=== PATIENT | female | born 1995 ===

== ENCOUNTER 2017-03-14 10:38 | Emergency (ER) | payer MEDICAID ==
[2017-03-14 11:09] VITALS: TEMP 99.5; BMI 22.8
[2017-03-14] MEDS ORDERED: Sodium Chloride 0.9% 1,000 ML IV STA (11:11)
--- NOTE | 2017-03-14 11:55 | ED PDOC ---
Arrival/HPI - General Chief Complaint: Flu-like Symptoms Time Seen by Provider: 03/14/17 11:11 Historian: Patient - History of Present Illness Narrative History of Present Illness (Text): 03/14/17 11:47 21yo female with no PMHx present with complaint of diffuse abdominal pain, nausea, nonbloody/billious vomiting and diarrhea x 2days. +Subjective fever. + Sick contact. Denies chest pain, dizziness, melena, hematemesis, urinary symptoms, travel, any other complaint. Past Medical History - Provider Review Nursing Documentation Reviewed: Yes - Psychiatric Hx Substance Use: No Family/Social History - Physician Review Nursing Documentation Reviewed: Yes Family/Social History: Unknown Family HX Smoking Status: Never Smoked Hx Alcohol Use: No Hx Substance Use: No Allergies/Home Meds Allergies/Adverse Reactions: Allergies No Known Allergies Allergy (Verified 03/14/17 11:09) Review of Systems - Physician Review All systems were reviewed & negative as marked: Yes - Review of Systems Constitutional: Normal Eyes: Normal ENT: Normal Respiratory: Normal Cardiovascular: Normal Gastrointestinal: Abdominal Pain, Diarrhea, Nausea, Vomiting. absent: Constipation, Hematochezia, Hematemesis Genitourinary Female: Normal Musculoskeletal: Normal Skin: Normal Neurological: Normal Endocrine: Normal Hemo/Lymphatic: Normal Psychiatric: Normal Physical Exam Vital Signs Reviewed: Yes Vital Signs Temp Pulse Resp BP Pulse Ox 03/14/17 11:01 99.5 F 127 H 18 97/67 L 96 Temperature: Afebrile Blood Pressure: Normal Pulse: Tachycardic Respiratory Rate: Normal Appearance: Positive for: Well-Appearing, Non-Toxic, Comfortable Pain Distress: None Mental Status: Positive for: Alert and Oriented X 3 - Systems Exam Head: Present: Atraumatic, Normocephalic Pupils: Present: PERRL Extroacular Muscles: Present: EOMI Conjunctiva: Present: Normal Mouth: Present: Moist Mucous Membranes Neck: Present: Normal Range of Motion Respiratory/Chest: Present: Clear to Auscultation, Good Air Exchange. No: Respiratory Distress, Accessory Muscle Use Cardiovascular: Present: Regular Rate and Rhythm, Normal S1, S2. No: Murmurs Abdomen: Present: Tenderness (diffuse), Normal Bowel Sounds, Other (soft). No: Distention, Peritoneal Signs, Rebound, Guarding, McBurney's Point Tender, Rovsing's Sign Present Back: Present: Normal Inspection Upper Extremity: Present: Normal Inspection. No: Cyanosis, Edema Lower Extremity: Present: Normal Inspection. No: Edema Neurological: Present: GCS=15, CN II-XII Intact, Speech Normal Skin: Present: Warm, Dry, Normal Color. No: Rashes Psychiatric: Present: Alert, Oriented x 3, Normal Insight, Normal Concentration Medical Decision Making ED Course and Treatment: 03/14/17 13:19 PT in ED for stated history. she was hydrated and treated with Zofran, Toradol and pepcid. On re evaluation her pain improved and she was able to tolerate PO challenge in ED. she have UTI and was treated with macrobid. Result was DW the pt. she was advised to drink plenty of fluid and follow BALD diet. Referred to her PMD. TRT ED for any new or worsening symptoms - Lab Interpretations Lab Results: 03/14/17 12:00 03/14/17 12:00 Lab Results 03/14/17 12:00: Sodium 137, Potassium 3.5 L, Chloride 101, Carbon Dioxide 25, Anion Gap 15, BUN 25 H, Creatinine 0.7, Est GFR ( Amer) > 60, Est GFR ( Non-Af Amer) > 60, Random Glucose 104, Calcium 8.9, Total Bilirubin 0.7, AST 26 , ALT 24, Alkaline Phosphatase 63, Total Protein 8.0, Albumin 4.6, Globulin 3.4 , Albumin/Globulin Ratio 1.3, Lipase 108 03/14/17 12:00: Urine Color Yellow, Urine Appearance Cloudy, Urine pH 6.0, Ur Specific [place] 1.025, Urine Protein Trace H, Urine Glucose (UA) Negative, Urine Ketones Trace H, Urine Blood Negative, Urine Nitrate Negative, Urine Bilirubin Small H, Urine Urobilinogen 1.0 H, Ur Leukocyte Esterase Moderate H, Urine RBC 0 - 2, Urine WBC 10 - 15, Ur Epithelial Cells Many, Urine Bacteria Mod 03/14/17 12:00: PT 12.5, INR 1.13 H, APTT 29.3 03/14/17 12:00: WBC 5.8, RBC 4.77, Hgb 13.6, Hct 42.1, MCV 88.3, MCH 28.5, MCHC 32.3, RDW 13.7, Plt Count 207, MPV 11.2 H, Gran % 85.9 H, Lymph % (Auto) 8.2 L, Reagan % (Auto) 5.9, Eos % (Auto) 0.0 L, Baso % (Auto) 0.0, Gran # 4.95, Lymph # 0.5 L, Reagan # 0.3, Eos # 0.0, Baso # 0.00 - Medication Orders Current Medication Orders: Discontinued Medications Famotidine (Pepcid) 20 mg IVP STAT STA Stop: 03/14/17 11:12 Last Admin: 03/14/17 12:00 Dose: 20 mg IVP Administration Document 03/14/17 12:00 RD (Rec: 03/14/17 12:00 RD [id number]) Charges for Administration # of IVP Administrations 1 Sodium Chloride (Sodium Chloride 0.9%) 1,000 mls @ 1,000 mls/hr IV .Q1H STA Stop: 03/14/17 12:10 Last Admin: 03/14/17 11:28 Dose: 1,000 mls/hr eMAR Start Stop Document 03/14/17 11:28 RD (Rec: 03/14/17 11:28 RD [id number]) Intravenous Solution Start Date 03/14/17 Start Time 11:28 End Date 03/14/17 End time 12:28 Total Infusion Time 60 Ketorolac Tromethamine (Toradol) 30 mg IVP STAT STA Stop: 03/14/17 11:12 Last Admin: 03/14/17 12:00 Dose: 30 mg MAR Pain Assessment Document 03/14/17 12:00 RD (Rec: 03/14/17 12:01 RD [id number]) Pain Reassessment Is this a pain reassessment? No Sleep Is patient sleeping during reassessment? No Presence of Pain Presence of Pain Yes IVP Administration Document 03/14/17 12:00 RD (Rec: 03/14/17 12:01 RD [id number]) Charges for Administration # of IVP Administrations 1 Nitrofurantoin Macrocrystals (Macrobid) 100 mg PO Q12 STA Stop: 03/14/17 12:30 Last Admin: 03/14/17 12:30 Dose: 100 mg Ondansetron HCl (Zofran Inj) 4 mg IVP STAT STA Stop: 03/14/17 11:12 Last Admin: 03/14/17 12:01 Dose: 4 mg IVP Administration Document 03/14/17 12:01 RD (Rec: 03/14/17 12:01 RD [id number]) Charges for Administration # of IVP Administrations 1 Disposition/Present on Arrival - Present on Arrival Any Indicators Present on Arrival: No History of DVT/PE: No History of Uncontrolled Diabetes: No Urinary Catheter: No History of Decub. Ulcer: No History Surgical Site Infection Following: None - Disposition Have Diagnosis and Disposition been Completed?: Yes Diagnosis: Abdominal pain, Vomiting and diarrhea Disposition: HOME/ ROUTINE Disposition Time: 13:25 Patient Plan: Discharge Condition: STABLE Discharge Instructions (ExitCare): Abdominal Pain (ED) Additional Instructions: Follow up with your doctor and drink plenty of fluid Follow BLAND diet Return to ED for any new or worsening symptoms Prescriptions: Famotidine [Pepcid] 20 mg PO BID #20 tab Nitrofurantoin Macrocrystals [Macrobid] 100 mg PO BID #14 cap Ondansetron ODT [Zofran ODT] 4 mg PO Q6 #7 odt Referrals: Roambidenice Johnson, [Primary Care Provider] - Follow up with primary [facility] at [facility] [place], [place] [Outside] - Follow up with primary Forms: [employer] (Chinese)
[2017-03-14 12:04] LABS: URINE BILIRUBIN SMALL (NEGATIVE); URINE BLOOD NEGATIVE (NEGATIVE); URINE GLUCOSE (UA) NEGATIVE (NEGATIVE); URINE KETONE TRACE mg/dL (NEGATIVE); URINE LEUKOCYTE ESTERASE MODERATE Leu/uL (NEGATIVE); URINE PROTEIN TRACE mg/dL (<30 mg/dL)
[2017-03-14 12:05] LABS: GRAN # 4.95 (1.4-6.5); GRAN % 85.9 % (50.0-68.0); HEMATOCRIT 42.1 % (36.0-48.0); LYMPH # 0.5 (1.2-3.4); LYMPH % 8.2 % (22.0-35.0); MEAN CELL VOLUME 88.3 fl (80.0-105.0); MEAN CORPUSCULAR HEMOGLOBIN 28.5 pg (25.0-35.0); MEAN CORPUSCULAR HGB CONC 32.3 g/dl (31.0-37.0); MEAN PLATELET VOLUME 11.2 fl (7.0-11.0); MONO # 0.3 (0.1-0.6); MONO % 5.9 % (1.0-6.0); RED CELL DISTRIBUTION WIDTH 13.7 % (11.5-14.5); WHITE BLOOD COUNT 5.8 10^3/ul (4.5-11.0)
[2017-03-14 12:06] LABS: URINE APPEARANCE CLOUDY (CLEAR); URINE COLOR YELLOW (YELLOW)
[2017-03-14 12:17] LABS: URINE BACTERIA MOD (NEG); URINE EPITHELIAL CELLS MANY /hpf (0-5); URINE RBC 0 - 2 /hpf (0-2)
[2017-03-14 12:20] LABS: INR 1.13 (0.93-1.08); PARTIAL THROMBOPLASTIN TIME 29.3 Seconds (25.1-36.5)
[2017-03-14 12:32] LABS: LIPASE 108 U/L (23-300)
[2017-03-14 12:41] LABS: ALB/GLOB RATIO 1.3 (1.1-1.8); ALKALINE PHOSPHATASE 63 U/L (38-126); ALT/SGPT 24 U/L (7-56); AST/SGOT 26 U/L (14-36); BILIRUBIN,TOTAL 0.7 mg/dL (0.2-1.3); BLOOD UREA NITROGEN 25 mg/dL (7-21); CALCIUM 8.9 mg/dL (8.4-10.5); CARBON DIOXIDE 25 mmol/L (21-33); CHLORIDE 101 mmol/L (98-107); GFR AFRICAN-AMERICAN > 60; GLUCOSE,RANDOM 104 mg/dL (70-110); POTASSIUM 3.5 mmol/L (3.6-5.0); SODIUM 137 mmol/L (132-148)
[2017-03-14 14:03] VITALS: BP 118/74; PULSE 90; RESP 17; O2SAT 99
== END 2017-03-14 13:45 | disposition home or self-care (01) ==
LOC: MERGE 10:38 → ED 10:38
DX: R10.9 Unspecified abdominal pain (principal); R11.10 Vomiting, unspecified; R19.7 Diarrhea, unspecified
CPT/HCPCS: 80053; 81001; 83690; 85025; 85610; 85730; 87086; 96361; 96374; 96375; 99284; J1885; J2405; J7040

== ENCOUNTER 2017-12-30 18:18 | Emergency (ER) | payer MEDICAID ==
[2017-12-30 19:31] VITALS: TEMP 98.1; O2SAT 99; BMI 31.2
[2017-12-30] MEDS ORDERED: Alum-Mag Hydrox-Simethicone Susp (30 mL) PO STA (19:56)
--- NOTE | 2017-12-30 20:04 | ED PDOC ---
Arrival/HPI - General Chief Complaint: Abdominal Pain Time Seen by Provider: 12/30/17 19:39 Historian: Patient - History of Present Illness Narrative History of Present Illness (Text): 12/30/17 20:00 22 yr old female w/ hx of choleycystitis, gastritis, H. Pylori, previously on antibiotics, on PPI p/w abdominal pain. Pt notes her pain feels exactly alike previous GERD like abdominal pain for which she has seen her GI doctor: Dr. Coon. She had an endoscopy 2 weeks ago and was told that she had H. Pylori today by her GI doctor. She notes burning epigastric pain, radiating into her L side. She notes pain since 6d prior and was seen by GI today and given more PPI. No trauma or fall. No flank pain. No urinary complaints. LMP was Sept , normal. No vaginal bleeding. No constipation or diarrhea. Pt notes she last ate at 4 pm. She notes taking the PPI today with minor improvement of the pain. No headache, nausea or vomiting. No dark or bloody stool. No RLQ pain or LLQ pain. No CP or sob. No other complaints. Time/Duration: < week Symptom Onset: Gradual Symptom Course: Unchanged Quality: Burning Past Medical History - Past History Past History: No Previous - Infectious Disease Hx of Infectious Diseases: None - Tetanus Immunization Tetanus Immunization: Up to Date - Past Medical History Past Medical History: No Previous - Psychiatric Hx Depression: No Hx Emotional Abuse: No Hx Physical Abuse: No Hx Substance Use: No - Past Surgical History Past Surgical History: No Previous - Surgical History Hx Cholecystectomy: Yes - Anesthesia Hx Anesthesia: Yes Hx Anesthesia Reactions: No Hx Malignant Hyperthermia: No - Suicidal Assessment Feels Threatened In Home Enviroment: No Family/Social History Family/Social History: No Known Family HX Smoking Status: Never Smoked Hx Alcohol Use: No Hx Substance Use: No Hx Substance Use Treatment: No Allergies/Home Meds Allergies/Adverse Reactions: Allergies No Known Allergies Allergy (Verified 09/19/14 10:28) Home Medications: Home Meds Medication Instructions Recorded Confirmed Amoxicillin [Amoxil 500 mg Cap] 1 cap PO Q12H 12/30/17 12/30/17 Clarithromycin [Biaxin Filmtab] 1 tab PO BID 12/30/17 12/30/17 Dexlansoprazole [Dexilant] 1 cap PO DAILY 12/30/17 12/30/17 Omeprazole 1 cap PO BID 12/30/17 12/30/17 Review of Systems - Review of Systems Constitutional: Normal. absent: Fatigue Eyes: Normal. absent: Vision Changes ENT: Normal. absent: Hearing Changes Respiratory: Normal. absent: SOB Cardiovascular: Normal. absent: Chest Pain Gastrointestinal: Abdominal Pain. absent: Stool Changes, Constipation, Diarrhea, Nausea, Vomiting, Hematochezia, Hematemesis Genitourinary Female: Normal. absent: Dysuria, Frequency, Hematuria, Vaginal Bleeding, Vaginal Discharge Musculoskeletal: Normal. absent: Arthralgias, Back Pain, Neck Pain Skin: Normal. absent: Rash, Pruritis, Skin Lesions Neurological: Normal. absent: Headache, Dizziness Endocrine: Normal. absent: Diaphoresis, Polyuria Physical Exam Vital Signs Temp Pulse Resp BP Pulse Ox 12/30/17 19:21 98.1 F 98 H 20 119/74 99 - Systems Exam Head: Present: Atraumatic, Normocephalic Pupils: Present: PERRL Extroacular Muscles: Present: EOMI Conjunctiva: Present: Normal Mouth: Present: Moist Mucous Membranes Neck: Present: Normal Range of Motion Respiratory/Chest: Present: Clear to Auscultation, Good Air Exchange. No: Respiratory Distress, Accessory Muscle Use Cardiovascular: Present: Regular Rate and Rhythm, Normal S1, S2. No: Murmurs Abdomen: Present: Tenderness (epigastric, LUQ). No: Distention, Peritoneal Signs, Rebound, Guarding, McBurney's Point Tender, Rovsing's Sign Present, Hernias, Mass/Organomegaly Back: Present: Normal Inspection Upper Extremity: Present: Normal Inspection. No: Cyanosis, Edema Lower Extremity: Present: Normal Inspection. No: Edema Neurological: Present: GCS=15, CN II-XII Intact, Speech Normal Skin: Present: Warm, Dry, Normal Color. No: Rashes Psychiatric: Present: Alert, Oriented x 3, Normal Insight, Normal Concentration Medical Decision Making ED Course and Treatment: 12/30/17 20:06 22 yr old female w/ hx of choley, gastritis, recently dx w/ H. Pylori today p/w abdominal pain, epigastric, radiating to L side. No trauma. No urinary complaints no CVAT. No urinary or genital related complaints. Likely recurrent H. Pylori pain given x5d of pain, was dx today and started on H. Pylori cocktail per pt re-eval. No RLQ pain. No LLQ pain. No diarrhea or constipation. Will seek labs, pain control given largely benign abd exam and reassessment. No etoh. pending labs 12/30/17 20:35 labs unremarkable. neg preg. pending reassessment 12/30/17 2120 abd nonttp on reassessment w/ out peritoneal signs Pt in NAD with VSS, endorses improvement of pain. Pt requesting maalox for home clear for d/c home - Medication Orders Current Medication Orders: Discontinued Medications Al Hydrox/Mg Hydrox/Simethicone (Maalox Plus 30 Ml) 30 ml PO STAT STA Stop: 12/30/17 19:57 Disposition/Present on Arrival - Present on Arrival Any Indicators Present on Arrival: No History of DVT/PE: No History of Uncontrolled Diabetes: No Urinary Catheter: No History of Decub. Ulcer: No History Surgical Site Infection Following: None - Disposition Have Diagnosis and Disposition been Completed?: Yes Diagnosis: Gastritis Disposition: HOME/ ROUTINE Disposition Time: 21:00 Patient Problems: Current Active Problems Problem Status Onset Gastritis Acute Condition: GOOD Discharge Instructions (ExitCare): Gastritis Additional Instructions: OBED ZAVALA, thank you for letting us take care of you today. Your provider was Chava Sullivan and you were treated for STOMACH PAIN. The emergency medical care you received today was directed at your acute symptoms. If you were prescribed any medication, please fill it and take as directed. It may take several days for your symptoms to resolve. Return to the Emergency Department if your symptoms worsen, do not improve, or if you have any other problems. Please contact your doctor or call one of the physicians/clinics you have been referred to that are listed on the Patient Visit Information form that is included in your discharge packet. Bring any paperwork you were given at discharge with you along with any medications you are taking to your follow up visit. Our treatment cannot replace ongoing medical care by a primary care provider outside of the emergency department. Thank you for allowing the [facility] team to be part of your care today. If you had an X-Ray or CT scan: A Radiologist will review the ED reading if any change in treatment is needed we will contact you. If you had a blood, urine, or wound culture: It will take several days for the results, if any change in treatment is needed we will contact you. If you had an STI test: It will take 48 hours for the results. Please call after 1 week if you have not heard back. Prescriptions: Aluminum Hydroxide/Magnesium H [Maalox 30 ml] 10 ml PO BID PRN 10 Days #100 udc PRN Reason: Pain, Moderate (4-7) Forms: [employer] (Eritrean)
[2017-12-30 20:20] LABS: VENOUS BLOOD GAS PO2 36 mm/Hg (30-55); VENOUS BLOOD PH 7.32 (7.32-7.43)
[2017-12-30 20:21] LABS: BASO # 0.02 K/mm3 (0.0-2.0); BASO % 0.2 % (0.0-3.0); EOS # 0.6 (0.0-0.7); EOS % 5.3 % (1.5-5.0); GRAN # 6.88 (1.4-6.5); GRAN % 64.6 % (50.0-68.0); HEMOGLOBIN 11.9 g/dL (12.0-16.0); LYMPH # 2.6 (1.2-3.4); LYMPH % 24.3 % (22.0-35.0); MEAN CELL VOLUME 87.8 fl (80.0-105.0); MEAN CORPUSCULAR HEMOGLOBIN 28.4 pg (25.0-35.0); MEAN CORPUSCULAR HGB CONC 32.3 g/dl (31.0-37.0); MEAN PLATELET VOLUME 10.6 fl (7.0-11.0); MONO # 0.6 (0.1-0.6); MONO % 5.6 % (1.0-6.0); RBC 4.19 10^6/uL (3.5-6.1); RED CELL DISTRIBUTION WIDTH 13.1 % (11.5-14.5); URINE BILIRUBIN NEGATIVE (NEGATIVE); URINE BLOOD NEGATIVE (NEGATIVE); URINE GLUCOSE (UA) NEGATIVE (NEGATIVE); URINE LEUKOCYTE ESTERASE SMALL Leu/uL (NEGATIVE); URINE PROTEIN NEGATIVE mg/dL (<30 mg/dL); URINE UROBILINOGEN 0.2 E.U./dL (<1 E.U./dL); WHITE BLOOD COUNT 10.7 10^3/ul (4.5-11.0)
[2017-12-30 20:22] LABS: URINE APPEARANCE SL CLOUDY (CLEAR); URINE COLOR YELLOW (YELLOW)
[2017-12-30 20:23] LABS: URINE EPITHELIAL CELLS MANY /hpf (0-5); URINE RBC NEGATIVE /hpf (0-2)
[2017-12-30 20:33] LABS: ALB/GLOB RATIO 1.2 (1.1-1.8); ALBUMIN 4.4 g/dL (3.0-4.8); ALT/SGPT 18 U/L (7-56); AST/SGOT 22 U/L (14-36); BLOOD UREA NITROGEN 17 mg/dL (7-21); CALCIUM 9.2 mg/dL (8.4-10.5); GFR NON-AFRICAN AMERICAN > 60; LIPASE 90 U/L (23-300)
[2017-12-30 21:20] VITALS: BP 121/71; PULSE 89; RESP 18
== END 2017-12-30 21:46 | disposition home or self-care (01) ==
LOC: ED 18:18
DX: K29.70 Gastritis, unspecified, without bleeding (principal)

== ENCOUNTER 2018-07-14 09:12 | Emergency (ER) | payer MEDICAID ==
[2018-07-14 09:13] VITALS: BMI 24.5
[2018-07-14 09:37] VITALS: RESP 18; TEMP 98.5; O2SAT 97
[2018-07-14] MEDS ORDERED: Sodium Chloride 0.9% 1,000 ML IV STA (09:52)
[2018-07-14 10:23] LABS: BASO # 0.01 K/mm3 (0.0-2.0); BASO % 0.2 % (0.0-3.0); HEMOGLOBIN 13.2 g/dL (12.0-16.0); LYMPH # 0.8 (1.2-3.4); LYMPH % 15.7 % (22.0-35.0); MEAN CELL VOLUME 89.9 fl (80.0-105.0); MEAN CORPUSCULAR HEMOGLOBIN 28.9 pg (25.0-35.0); MEAN CORPUSCULAR HGB CONC 32.2 g/dl (31.0-37.0); MEAN PLATELET VOLUME 11.1 fl (7.0-11.0); MONO # 0.4 (0.1-0.6); MONO % 8.9 % (1.0-6.0); PH,URINE 6.5 (4.7-8.0); RBC 4.56 10^6/uL (3.5-6.1); RED CELL DISTRIBUTION WIDTH 12.9 % (11.5-14.5); URINE BILIRUBIN NEGATIVE (NEGATIVE); URINE BLOOD NEGATIVE (NEGATIVE); URINE GLUCOSE (UA) NEGATIVE (NEGATIVE); URINE LEUKOCYTE ESTERASE NEGATIVE Leu/uL (NEGATIVE); URINE PROTEIN 30 mg/dL (<30 mg/dL); URINE UROBILINOGEN 0.2 E.U./dL (<1 E.U./dL); WHITE BLOOD COUNT 4.9 10^3/uL (4.5-11.0)
[2018-07-14 10:26] LABS: URINE APPEARANCE TURBID (CLEAR); URINE COLOR YELLOW (YELLOW)
[2018-07-14 10:32] LABS: ALB/GLOB RATIO 1.2 (1.1-1.8); ALBUMIN 4.4 g/dL (3.0-4.8); ALT/SGPT 17 U/L (7-56); AST/SGOT 26 U/L (14-36); BLOOD UREA NITROGEN 23 mg/dL (7-21); CALCIUM 9.2 mg/dL (8.4-10.5); GFR NON-AFRICAN AMERICAN > 60; LIPASE 47 U/L (23-300)
[2018-07-14 10:33] LABS: URINE BACTERIA FEW /hpf
[2018-07-14 10:37] LABS: INR 1.19; PARTIAL THROMBOPLASTIN TIME 31.8 Seconds (26.9-38.3); PROTHROMBIN TIME 13.5 SECONDS (9.4-12.5)
--- NOTE | 2018-07-14 10:45 | ED PDOC ---
Arrival/HPI - General Chief Complaint: GI Problem Time Seen by Provider: 07/14/18 09:30 Historian: Patient - History of Present Illness Narrative History of Present Illness (Text): 07/14/18 10:42 22-year-old female presents today with vomiting and diarrhea. Patient states that she has a history of gastritis and has been having nausea and vomiting and diarrhea yesterday. pt states that she was constipated which she usually is and took a stool softener a few days ago. pt states afterwards she was having normal bowel movements until yesterday when she started having vomiting and diarrhea multiple episodes. Patient states she had taken Pepto-Bismol yesterday and today had an episode of black vomitus as well as an episode of black stool. Patient denies abdominal pain. No chest pain or shortness of breath. She denies fevers or chills. Patient states she came in today because she was concerned that tongue had black discoloration to it. Past Medical History - Provider Review Nursing Documentation Reviewed: Yes - Travel History Have you recently traveled outside [place] w/in the past 3 mons?: No - Past History Past History: No Previous - Infectious Disease Hx of Infectious Diseases: None - Tetanus Immunization Tetanus Immunization: Up to Date - Past Medical History Past Medical History: No Previous - Psychiatric Hx Depression: No Hx Emotional Abuse: No Hx Physical Abuse: No Hx Substance Use: No - Past Surgical History Past Surgical History: No Previous - Surgical History Hx Cholecystectomy: Yes - Anesthesia Hx Anesthesia: Yes Hx Anesthesia Reactions: No Hx Malignant Hyperthermia: No - Suicidal Assessment Feels Threatened In Home Enviroment: No Family/Social History - Physician Review Nursing Documentation Reviewed: Yes Family/Social History: Unknown Family HX Smoking Status: Never Smoked Hx Alcohol Use: No Hx Substance Use: No Hx Substance Use Treatment: No Allergies/Home Meds Allergies/Adverse Reactions: Allergies No Known Allergies Allergy (Verified 09/19/14 10:28) Review of Systems - Review of Systems Constitutional: absent: Fatigue, Fevers Respiratory: absent: SOB, Cough Cardiovascular: absent: Chest Pain, Palpitations Gastrointestinal: Diarrhea, Nausea, Vomiting. absent: Abdominal Pain Genitourinary Female: absent: Dysuria, Frequency, Hematuria Musculoskeletal: absent: Arthralgias, Back Pain, Neck Pain Skin: absent: Rash, Pruritis Neurological: absent: Headache, Dizziness Psychiatric: absent: Anxiety, Depression Physical Exam Vital Signs Reviewed: Yes Vital Signs Temp Pulse Resp BP Pulse Ox 07/14/18 09:30 98.5 F 94 H 18 108/70 97 Temperature: Afebrile Blood Pressure: Normal Pulse: Regular Respiratory Rate: Normal Appearance: Positive for: Well-Appearing, Non-Toxic, Comfortable Pain Distress: None Mental Status: Positive for: Alert and Oriented X 3 - Systems Exam Head: Present: Atraumatic Mouth: Present: Moist Mucous Membranes. No: Normal Tounge (light black discoloration noted to parts of the tongue) Pharnyx: Present: Normal Nose (External): Present: Atraumatic Nose (Internal): Present: Normal Inspection Neck: Present: Normal Range of Motion Respiratory/Chest: Present: Clear to Auscultation, Good Air Exchange. No: Respiratory Distress, Accessory Muscle Use Cardiovascular: Present: Regular Rate and Rhythm, Normal S1, S2. No: Murmurs Abdomen: Present: Normal Bowel Sounds. No: Tenderness, Distention, Peritoneal Signs, Rebound, Guarding Back: Present: Normal Inspection Upper Extremity: Present: Normal ROM Lower Extremity: Present: Normal ROM Neurological: Present: GCS=15, Speech Normal Skin: Present: Warm, Dry, Normal Color. No: Rashes Psychiatric: Present: Alert, Oriented x 3 Medical Decision Making ED Course and Treatment: 07/14/18 10:45 Patient is nontoxic well appearing with stable vital signs presenting with nausea and vomiting with one episode of diarrhea. CBC within normal limits CMP BUN 23 Lipase within normal limits Urinalysis: wnl abd/flat and upright: FINDINGS: BOWEL: Normal. No obstruction. No free air. BONES: Normal. OTHER FINDINGS: An IUD is seen IMPRESSION: No active disease. Patient reassessment: pt is non toxic well appearing; no distress. heme negative stools. pt took pepto bismol yesterday for vomiting and diarrhea; partially black tongue after vomiting black vomitus, and 1 episode of diarrhea dark. Discussed all results with patient in depth. pt advised to f/u with PMD and discontinue use of pepto bismol. advised immediate return if symptoms worsen,persist or if new symptoms develop. Patient verbalizes understanding of discharge instructions and need for immediate followup. All aspects of this case were discussed the attending of record. Impression: diarrhea, vomiting Pepcid one tablet daily Follow-up with a GI doctor within the next 2 days Follow up with primary care physician within the next 2 days Return immediately if symptoms worsen persist or if new symptoms develop: High fevers, increasing pain, vomiting, diarrhea or any other concerning symptoms develop - Lab Interpretations Lab Results: PT 13.5 SECONDS (9.4-12.5) H 07/14/18 10:13 INR 1.19 07/14/18 10:13 APTT 31.8 Seconds (26.9-38.3) 07/14/18 10:13 Total Bilirubin 0.4 mg/dL (0.2-1.3) 07/14/18 10:13 AST 26 U/L (14-36) 07/14/18 10:13 ALT 17 U/L (7-56) 07/14/18 10:13 Alkaline Phosphatase 65 U/L (38-126) 07/14/18 10:13 Total Protein 8.0 g/dL (5.8-8.3) 07/14/18 10:13 Albumin 4.4 g/dL (3.0-4.8) 07/14/18 10:13 Globulin 3.6 gm/dL 07/14/18 10:13 Albumin/Globulin Ratio 1.2 (1.1-1.8) 07/14/18 10:13 Lipase 47 U/L (23-300) 07/14/18 10:13 Urine Color Yellow (YELLOW) 07/14/18 10:13 Urine Appearance Turbid (CLEAR) 07/14/18 10:13 Urine pH 6.5 (4.7-8.0) 07/14/18 10:13 Ur Specific [place] 1.025 (1.005-1.035) 07/14/18 10:13 Urine Protein 30 mg/dL (<30 mg/dL) H 07/14/18 10:13 Urine Glucose (UA) Negative mg/dL (NEGATIVE) 07/14/18 10:13 Urine Ketones Negative mg/dL (NEGATIVE) 07/14/18 10:13 Urine Blood Negative (NEGATIVE) 07/14/18 10:13 Urine Nitrate Negative (NEGATIVE) 07/14/18 10:13 Urine Bilirubin Negative (NEGATIVE) 07/14/18 10:13 Urine Urobilinogen 0.2 E.U./dL (<1 E.U./dL) 07/14/18 10:13 Ur Leukocyte Esterase Negative [place]/uL (NEGATIVE) 07/14/18 10:13 Urine RBC None /hpf (0-2) 07/14/18 10:13 Urine WBC 1 - 3 /hpf (0-6) 07/14/18 10:13 Ur Epithelial Cells 6 - 8 /hpf (0-5) H 07/14/18 10:13 Urine Bacteria Few /hpf (NONE) 07/14/18 10:13 Urine Other Mucus /hpf 07/14/18 10:13 - RAD Interpretation Radiology Orders: 07/14/18 09:48 ABD 2 VIEWS (FLAT/UP OR DECUB) [RAD] Stat - Medication Orders Current Medication Orders: Sodium Chloride (Sodium Chloride 0.9%) 1,000 mls @ 999 mls/hr IV .Q1H1M STA Stop: 07/14/18 10:52 Last Admin: 07/14/18 10:24 Dose: 999 mls/hr eMAR Start Stop Document 07/14/18 10:24 CD (Rec: 07/14/18 10:25 CD [facility] Intravenous Solution Start Date 07/14/18 Start Time 10:24 End Date 07/14/18 End time 11:25 Total Infusion Time 61 Discontinued Medications Pantoprazole Sodium (Protonix Inj) 40 mg IVP STAT STA Stop: 07/14/18 09:53 Last Admin: 07/14/18 10:25 Dose: 40 mg IVP Administration Document 07/14/18 10:25 CD (Rec: 07/14/18 10:25 CD [facility] Charges for Administration # of IVP Administrations 1 Disposition/Present on Arrival - Present on Arrival Any Indicators Present on Arrival: No History of DVT/PE: No History of Uncontrolled Diabetes: No Urinary Catheter: No History of Decub. Ulcer: No History Surgical Site Infection Following: None - Disposition Have Diagnosis and Disposition been Completed?: Yes Diagnosis: Diarrhea, Vomiting Disposition: HOME/ ROUTINE Disposition Time: 11:30 Patient Plan: Discharge Patient Problems: Current Active Problems Problem Status Onset Diarrhea Acute Vomiting Acute Condition: GOOD Discharge Instructions (ExitCare): Diarrhea in Adolescents and Adults, Nausea and Vomiting, Adult (DC) Additional Instructions: Pepcid one tablet daily Follow-up with a GI doctor within the next 2 days Follow up with primary care physician within the next 2 days Return immediately if symptoms worsen persist or if new symptoms develop: High fevers, increasing pain, vomiting, diarrhea or any other concerning symptoms develop Prescriptions: Famotidine [Pepcid] 20 mg PO DAILY #30 tab Referrals: Arash Sanford MD [Staff Provider] - Follow up with primary Rena Jason MD [Medical Doctor] - Follow up with primary Forms: [email or web address] (Sudanese)
--- NOTE | 2018-07-14 10:49 | RAD ---
Date of service: 07/14/2018 HISTORY: vomiting COMPARISON: None available. TECHNIQUE: 1 view obtained. FINDINGS: BOWEL: Normal. No obstruction. No free air. BONES: Normal. OTHER FINDINGS: An IUD is seen IMPRESSION: No active disease.
[2018-07-14 11:03] VITALS: BP 110/74; PULSE 86
== END 2018-07-14 11:49 | disposition home or self-care (01) ==
LOC: ED 09:12
DX: R19.7 Diarrhea, unspecified (principal); R11.10 Vomiting, unspecified; Z90.49 Acquired absence of other specified parts of digestive tract
CPT/HCPCS: 74019; 80053; 81001; 81025; 83690; 85025; 85610; 85730; 96361; 96374; 99284; C9113; J7030